=== PATIENT | male | born 1960 | race Caucasian/White ===

== ENCOUNTER 2018-04-10 14:11 | Emergency (ER) | payer OTHER ==
[~2018-04-10] VITALS: Ht 175.3 cm; Wt 137.4 kg
[2018-04-10] MEDS ORDERED: COZAAR100 MG (14:42)
[2018-04-10] MEDS ORDERED: ARMOUR THYROID120 M1 (14:44)
[2018-04-10] MEDS ORDERED: FORTAMET500 MG (14:46)
[2018-04-10] MEDS ORDERED: AMLODIPINE BESYL5 MG (14:46)
[2018-04-10] MEDS ORDERED: SIMVASTATIN20 MG (14:47)
[2018-04-10] MEDS ORDERED: CLOTRIMAZOLE10 MG (14:47)
[2018-04-10] MEDS ORDERED: XYZAL5 MG (14:49)
== END 2018-04-10 21:33 | disposition home or self-care (01) ==
LOC: ER 14:11
DX: R07.89 Other chest pain (principal); J32.8 Other chronic sinusitis

== ENCOUNTER 2018-09-27 06:03 | Day surgery (SDC) | payer OTHER ==
[~2018-09-27 06:03] MED LIST: AMLODIPINE BESYL5 MG; ARMOUR THYROID120 M1; CLOTRIMAZOLE10 MG; COZAAR100 MG; FORTAMET500 MG; SIMVASTATIN20 MG; XYZAL5 MG
== END 2018-09-27 16:10 | disposition home or self-care (01) ==
LOC: CIR.AMB 06:03
DX: Z98.52 Vasectomy status (principal)

== ENCOUNTER → 2021-03-15 | Outpatient (CLI) | payer OTHER | END | disposition home or self-care (01) | LOC: SONOGRAMA 08:50 → MAMO-SONO 12:15 | PROVIDERS: ATTEND Orthopaedic Surgery Sports Medicine | DX: M75.51 Bursitis of right shoulder (principal) ==

== ENCOUNTER 2021-07-19 14:39 | Outpatient (CLI) | payer OTHER | END 2021-07-19 14:51 | disposition home or self-care (01) | LOC: RAD 14:39 | PROVIDERS: ATTEND Neurological Surgery | DX: M54.5 Low back pain (principal); M54.2 Cervicalgia; M54.6 Pain in thoracic spine ==

== ENCOUNTER 2021-08-24 07:00 | Outpatient (CLI) | payer OTHER | END 2021-08-24 07:15 | disposition home or self-care (01) | LOC: PPH VACUNA 07:00 | PROVIDERS: ATTEND Emergency Medicine Pediatric Emergency Medicine | DX: Z23 Encounter for immunization (principal) ==

== ENCOUNTER 2021-11-11 09:19 | Emergency (ER) | payer OTHER ==
[~2021-11-11] VITALS: Ht 177.8 cm; Wt 117.9 kg
[2021-11-11] MEDS ORDERED: OZEMPIC0.25 MG/0. SQ (09:32)
[2021-11-11] MEDS ORDERED: BEVESPI AEROS10.7 GM IH (09:33)
[2021-11-11] MEDS ORDERED: SYNTHROID200 MCG PO (09:33)
[2021-11-11] MEDS ORDERED: TOPROL XL50 M1 (09:33)
[2021-11-11] MEDS ORDERED: ATORVASTATIN CA20 MG PO (09:33)
[2021-11-11] MEDS ORDERED: ALLEGRA ALLERG180 MG PO (09:34)
[2021-11-11] MEDS ORDERED: TUSNEL LIQUID178 ML PO (11:57)
[2021-11-11] MEDS ORDERED: DOLOGEN 325-11 EACH PO (11:58)
[2021-11-11] MEDS ORDERED: AZITHROMYCIN250 MG PO (12:00)
== END 2021-11-11 14:35 | disposition home or self-care (01) ==
LOC: ER 09:19
DX: J06.9 Acute upper respiratory infection, unspecified (principal); Z20.822 Contact with and (suspected) exposure to COVID-19; E11.9 Type 2 diabetes mellitus without complications; I10 Essential (primary) hypertension

== ENCOUNTER 2022-03-16 14:05 | Outpatient (CLI) | payer OTHER ==
[~2022-03-16 14:05] MED LIST changes: +ALLEGRA ALLERG180 MG PO; +ATORVASTATIN CA20 MG PO; +AZITHROMYCIN250 MG PO; +BEVESPI AEROS10.7 GM IH; +DOLOGEN 325-11 EACH PO; +OZEMPIC0.25 MG/0. SQ; +SYNTHROID200 MCG PO; +TOPROL XL50 M1; +TUSNEL LIQUID178 ML PO
== END 2022-03-16 15:25 | disposition home or self-care (01) ==
LOC: NUCLEAR 14:05
PROVIDERS: ATTEND Internal Medicine Endocrinology, Diabetes & Metabolism
DX: M81.0 Age-related osteoporosis without current pathological fracture (principal)

== ENCOUNTER 2022-03-21 12:46 | Outpatient (CLI) | payer OTHER | END 2022-03-21 12:50 | disposition home or self-care (01) | LOC: RAD 12:46 | PROVIDERS: ATTEND Internal Medicine Pulmonary Disease | DX: J44.1 Chronic obstructive pulmonary disease with (acute) exacerbation (principal); J44.9 Chronic obstructive pulmonary disease, unspecified ==

== ENCOUNTER 2023-02-14 12:14 | Outpatient (CLI) | payer OTHER | END 2023-02-14 12:25 | disposition home or self-care (01) | LOC: SONOGRAMA 12:14 | PROVIDERS: ATTEND Orthopaedic Surgery Sports Medicine | DX: M19.012 Primary osteoarthritis, left shoulder (principal) ==

== ENCOUNTER 2023-04-26 12:55 | Outpatient (CLI) | payer OTHER | END 2023-04-26 13:08 | disposition home or self-care (01) | LOC: TOM 12:55 | PROVIDERS: ATTEND Internal Medicine Pulmonary Disease | DX: J84.111 Idiopathic interstitial pneumonia, not otherwise specified (principal) ==

== ENCOUNTER 2024-06-17 20:54 | Emergency (ER) | payer OTHER ==
[~2024-06-17] VITALS: Ht 177.8 cm; Wt 94.8 kg
[~2024-06-17 20:54] MED LIST changes: +BREZTRI AEROS10.7 GM IH; +CELEBREX200MG PO; +FAMOTIDINE40 MG PO; +FOLIC ACID1 MG PO; +METAXALONE800 MG PO; +ORENCIA CL125 MG/1 M SQ; +TAMSULOSIN HCL0.4 MG PO
[2024-06-17] MEDS ORDERED: 0.9 % SODIUM CHLORIDE 1,000 ML IV STA (21:43)
[2024-06-17 22:21] LABS: HEMOGLOBIN 13.9 g/dL (13-16.00); MEAN CELL VOLUME 87.2 fL (80.0-100.00); MEAN CORPUSCULAR HEMOGLOBIN 30.2 pg (27.00-32.0); MEAN CORPUSCULAR HGB CONC 34.6 g/dl (32.0-36.0); PLATELET COUNT 220 K/uL (150-450); RED BLOOD COUNT 4.59 M/uL (4.00-6.00); RED CELL DISTRIBUTION WIDTH 14.8 % (11.5-14.5)
[2024-06-17 22:37] LABS: CALCIUM 9.1 mg/dL (8.5-10.1); CREATININE SERUM 0.72 mg/dL (0.70-1.30); GFR 110.61; POTASSIUM 3.69 mEq/L (3.5-5.1)
[2024-06-17 23:26] LABS: URINE BILIRRUBIN Negative (NEGATIVE); URINE BLOOD Negative; URINE COLOR Yellow; URINE GLUCOSE Negative (NEGATIVE); URINE KETONE Trace (NEGATIVE); URINE LEUKOCYTE Negative; URINE NITRATE Negative; URINE PROTEIN Trace (NEGATIVE)
[2024-06-17 23:30] LABS: URINE BACTERIA 16.3 uL (0.0-1933); URINE EPITHELIAL CELLS 2.7 uL (0.0-38.8); URINE RBC 7.4 uL (0.0-20.8); URINE WBC 2.9 uL (0.0-23.2)
[2024-06-17 23:48] LABS: URINE CAST 0.45 uL (0.0-1.40)
[2024-06-17 23:49] LABS: URINE APPEARANCE CLEAR
[2024-06-18] MEDS ORDERED: CIPROFLOXACIN IN 5 % DEXTROSE 400 MG/200 ML PIGGYBAG IV ONE ×2 (01:39→01:45)
[2024-06-18] MEDS ORDERED: LEVSIN/SL0.125 MG SL (01:42)
[2024-06-18] MEDS ORDERED: CIPRO500 MG PO (01:42)
[2024-06-18] MEDS ORDERED: INTESTINEX680 M2 PO (01:42)
== END 2024-06-18 02:44 ==
LOC: ER 20:55
PROVIDERS: Emergency Medicine
DX: K52.9 Noninfective gastroenteritis and colitis, unspecified (principal); E11.9 Type 2 diabetes mellitus without complications; Z79.84 Long term (current) use of oral hypoglycemic drugs; E03.9 Hypothyroidism, unspecified; I10 Essential (primary) hypertension; Z91.010 Allergy to peanuts; Z91.013 Allergy to seafood

== ENCOUNTER 2025-06-13 15:29 | Emergency (ER) | payer OTHER ==
[~2025-06-13] VITALS: Ht 177.8 cm; Wt 106.6 kg
[~2025-06-13 15:29] MED LIST changes: +CIPRO500 MG PO; +INTESTINEX680 M2 PO; +LEVSIN/SL0.125 MG SL
[2025-06-13] MEDS ORDERED: KETOROLAC TROMETHAMINE 60 MG VIAL IM ONE ×2 (21:14→21:15)
[2025-06-13] MEDS ORDERED: DICLOFENAC SODI75 MG PO (21:23)
== END 2025-06-13 21:47 | disposition home or self-care (01) ==
LOC: ER 15:29
DX: S90.32XA Contusion of left foot, initial encounter (principal); W19.XXXA Unspecified fall, initial encounter; Y93.89 Activity, other specified; Y92.89 Other specified places as the place of occurrence of the external cause; Y99.9 Unspecified external cause status; Z91.010 Allergy to peanuts; Z91.013 Allergy to seafood